=== PATIENT | female | born 1985 | race Caucasian/White ===

== ENCOUNTER 2018-03-30 23:27 | Emergency (ER) | payer OTHER ==
[2018-03-30] MEDS ORDERED: PROPARACAINE 0.5% OPHTH DROPS 15 ML BTL LEFT EYE STA (23:44)
--- NOTE | 2018-03-30 23:46 | ED ---
Eye Problem HPI - General Chief complaint: Eye Problems Stated complaint: Eye Swelling Time Seen by Provider: 03/30/18 23:35 Source: patient Mode of arrival: ambulatory Limitations: no limitations - History of Present Illness Initial comments: This is a 33-year-old female the ER for evaluation. Patient has a for evaluation of left eye discomfort and irritation. Left eye started bothering patient one hour and a half ago and patient presents ER for evaluation. Patient states he feels like there might be something in her eye she denies any pain denies any change in vision chief complaint: eye pain -: hour(s) Onset Description: gradual Location: left eye Place: home If Injury: none Eye Symptoms: itching Severity: mild Consistency: constant Associated Symptoms: none Treatments Prior to Arrival: none - Related Data Home Medications Medication Instructions Recorded Confirmed Dextroamphetamine/Amphetamine 25 mg PO QAM 03/30/18 03/30/18 [Adderall Xr] PARoxetine [Paxil] 20 mg PO DAILY 03/30/18 03/30/18 Allergies Allergy/AdvReac Type Severity Reaction Status Date / Time No Known Allergies Allergy Verified 03/30/18 23:39 Review of Systems ROS Statement: Those systems with pertinent positive or pertinent negative responses have been documented in the HPI. ROS Other: All systems not noted in ROS Statement are negative. Past Medical History Past Medical History: No Reported History History of Any Multi-Drug Resistant Organisms: None Reported Past Surgical History: No Surgical Hx Reported Past Psychological History: Depression Smoking Status: Never smoker Past Alcohol Use History: Occasional Past Drug Use History: None Reported General Exam Limitations: no limitations General appearance: alert, in no apparent distress Head exam: Present: atraumatic, normocephalic, normal inspection Eye exam: Present: normal appearance, PERRL, EOMI, other (Left eye exam shows pinguecula lateral cornea, forcing exam is negative). Absent: scleral icterus, conjunctival injection, periorbital swelling ENT exam: Present: normal exam, mucous membranes moist Neck exam: Present: normal inspection. Absent: tenderness, meningismus, lymphadenopathy Respiratory exam: Present: normal lung sounds bilaterally. Absent: respiratory distress, wheezes, rales, rhonchi, stridor Cardiovascular Exam: Present: regular rate, normal rhythm, normal heart sounds. Absent: systolic murmur, diastolic murmur, rubs, gallop, clicks GI/Abdominal exam: Present: soft, normal bowel sounds. Absent: distended, tenderness, guarding, rebound, rigid Extremities exam: Present: normal inspection, full ROM, normal capillary refill. Absent: tenderness, pedal edema, joint swelling, calf tenderness Back exam: Present: normal inspection Neurological exam: Present: alert, oriented X3, CN II-XII intact Psychiatric exam: Present: normal affect, normal mood Skin exam: Present: warm, dry, intact, normal color. Absent: rash Course Vital Signs 03/30/18 23:30 Temperature 98.1 F Pulse Rate 81 Respiratory 16 Rate Blood Pressure 151/86 O2 Sat by Pulse 100 Oximetry - Reevaluation(s) Reevaluation #1: 03/30/18 23:45 Medical record is reviewed Medical Decision Making - Medical Decision Making 33 female here for evaluation, patient resents ER for evaluation of left eye irritation, pinguecula noted on exam, no faulty vision, patient can be discharged home encouraged to get lubricant eyedrops, follow-up with [facility] Disposition Clinical Impression: Pinguecula of left eye Disposition: TRANSFER TO PSYCH HOSP/UNIT Condition: Good Instructions: Eye Lubricant (Into the eye), Pinguecula (ED) Is patient prescribed a controlled substance at d/c from ED?: No Referrals: Omari Ritchie MD [Primary Care Provider] - 1-2 days
[2018-03-31 00:05] VITALS: BP 121/76; PULSE 77; RESP 18; TEMP 97
== END 2018-03-31 00:05 ==
LOC: EC 23:27
DX: H11.152 Pinguecula, left eye (principal); F32.9 Major depressive disorder, single episode, unspecified; Z79.899 Other long term (current) drug therapy
CPT/HCPCS: 99284

== ENCOUNTER → 2018-12-25 | Outpatient (CLI) | payer OTHER ==
--- NOTE | 2018-12-25 11:27 | US ---
EXAMINATION TYPE: US extremity nonvasc mass LT DATE OF EXAM: 12/25/2018 COMPARISON: NONE CLINICAL HISTORY: T14.8XXD Traumatic hematoma, subsequent. Patient states falling on deck x 2 weeks a go. Patient states lump on left gluteus it is getting harder and bigger. FINDINGS/TECHNIQUE: Targeted grayscale and color ultrasound was performed of the area of concern in t he left luteal region. Over the palpable abnormality there is a complex area measuring 5.6 x 6.3 x 3. 6 cm. This is avascular. Contralateral image taken for comparison with no abnormality seen. IMPRESSION: 6.3 cm avascular mass most commonly relates to hematoma in this patient with history of fall and appears as a hematoma sonographically. However given the patient's history of enlarging mass close clinical follow-up is recommended to ensure resolution. If no short-term resolution is seen or there is interval growth MRI with contrast would be recommended to exclude the unlikely possibility of soft tissue neoplasm/sarcoma.
== END | disposition home or self-care (01) ==
LOC: RADUSWWP 10:12
PROVIDERS: ATTEND Physician Assistant
DX: R22.9 Localized swelling, mass and lump, unspecified (principal)